=== PATIENT | male | born 1970 | race Caucasian/White ===

== ENCOUNTER 2017-04-14 05:47 | Emergency (ER) | payer OTHER ==
[~2017-04-14] VITALS: Ht 170.2 cm; Wt 76.7 kg
[2017-04-14 05:51] VITALS: TEMP 36.6; Ht 170.2 cm; Wt 76.7 kg
[2017-04-14 06:21] LABS: BASO % 0.2 %; BASO ABS # 0.02 K/uL (0-0.2); COMPLETE YES; EOS % 1.4 %; HEMATOCRIT 42.8 % (42-52); IG% 0.2 %; LYMPH % 19.4 %; LYMPH ABS # 1.85 K/uL (1.2-3.4); MEAN CELL VOLUME 81.5 fL (80-100); MEAN CORPUSCULAR HEMOGLOBIN 28.2 pg (25-34); MEAN CORPUSCULAR HGB CONC 34.6 g/dl (32-36); MEAN PLATELET VOLUME 9.3 fL (7.4-10.4); MONO % 4.9 %; NEUT % 73.9 %; PLATELET COUNT 203 K/uL (130-400); RED BLOOD COUNT 5.25 M/uL (4.7-6.1); WHITE BLOOD COUNT 9.53 K/uL (4.8-10.8)
[2017-04-14] MEDS ORDERED: OXYC1TAB3 PO (06:30)
[2017-04-14] MEDS ORDERED: ONDANSETRON HOME PACK 4MG OD TAB PO ONE (06:30)
[2017-04-14] MEDS ORDERED: OXYCODONE IR HOME PACK PO ONE (06:30)
[2017-04-14 06:31] LABS: URINE APPEARANCE CLEAR (CLEAR); URINE BILIRUBIN NEG (NEG); URINE COLOR YELLOW; URINE EPITHELIAL CELL AUTO 0-5 /lpf (0-5); URINE NITRITE NEG (NEG); URINE SPECIFIC GRAVITY 1.014 (1.000-1.030); UROBILINOGEN NEG (NEG); ZZUR CULT IF INDIC CLEAN CATCH NO
[2017-04-14 06:38] LABS: MANUAL MICROSCOPIC REQUIRED? NO; REVIEW REQ? NO
[2017-04-14 06:39] LABS: BUN/CREATININE RATIO 20.3 (10-20); CALCIUM 8.5 mg/dl (8.5-10.1); CREATININE 0.91 mg/dl (0.60-1.40); POTASSIUM 3.9 mmol/L (3.5-5.1)
--- NOTE | 2017-04-14 06:44 | EMERGENCY ROOM VISIT NOTE ---
History First contact with patient: 05:55 Chief Complaint: FLANK PAIN Stated Complaint: SIDDEN PAIN IN THE RIGHT SIDE,COLD SWEATS History of Present Illness The patient is a 46 year old male who presents to the Emergency Room with complaints of sudden severe onset of right flank pain that radiates to his groin for the past few hours. Patient took a pain pill and the pain is better. Currently 4-10. Nothing makes it better or worse. Patient was of urinary frequency without dysuria. Patient denies chest pain, dyspnea, fever, chills, vomiting, diarrhea, testicular pain, penile pain. No history kidney stones. Prior CT imaging showed a 5 mm kidney stone in the kidney. Patient is [place]- speaking and is requesting his son to translate. Review of Systems See HPI for pertinent positives & negatives. A total of 10 systems reviewed and were otherwise negative. Past Medical/Surgical History Medical Problems: (1) LUMBAGO (2) SCIATICA Family History Patient reports no known family medical history. Social History Smoking Status: Current Every Day Smoker Alcohol Use: none Drug Use: none Marital Status: Housing Status: lives with family Occupation Status: employed Current/Historical Medications Scheduled PRN Oxycodone Immediate Rel Tab (Roxicodone Ir), 1-2 TAB PO Q4H PRN for Severe Pain Allergies Coded Allergies: No Known Allergies (Unverified , 06/03/16) Physical Exam Vital Signs Date Time Temp Pulse Resp B/P Pulse Ox O2 Delivery O2 Flow Rate FiO2 04/14/17 05:51 36.6 70 18 114/78 97 Room Air Physical Exam VITALS: Vitals are noted on the nurse's note and reviewed by myself. Vital signs stable. GENERAL: Pleasant male, in no acute distress, nondiaphoretic, well-developed well-nourished. SKIN: The skin was without rashes, erythema, edema, or bruising. There is no tenting of the skin. Capillary reflex less than 2 seconds. HEAD: Normocephalic atraumatic. EARS: External auditory canals clear, tympanic membranes pearly juarez without erythema or effusion bilaterally. EYES: Pupils equal round and reactive to light and accommodation. Conjunctivae without injection, sclerae without icterus. Extraocular movements intact. NOSE: Patent, turbinates without inflammation or discharge. MOUTH: Mucous membranes moist. Pharynx without erythema or exudate. Uvula midline. Airway patent. Tongue does not deviate. NECK: Supple without nuchal rigidity. No lymphadenopathy. No thyromegaly. Cervical spine is nontender. No JVD. HEART: Regular rate and rhythm without murmurs gallops or rubs. LUNGS: Clear to auscultation bilaterally without wheezes, rales or rhonchi. No dullness to percussion. No retractions or accessory muscle use. ABDOMEN: Positive bowel sounds x 4. Normal tympanic percussion. Soft, nontender, without masses or organomegaly. Rodriguez sign negative. No guarding or rebound tenderness. No CVA tenderness MUSCULOSKELETAL: No muscle atrophy, erythema, or edema noted. NEURO: Patient was alert and oriented to person place and time. Normal sensation to light and sharp touch. No focal neurological deficits. Medical Decision & Procedures Laboratory Results 04/14/17 06:00 Red Blood Count 5.25, Mean Corpuscular Volume 81.5, Mean Corpuscular Hemoglobin 28.2, Mean Corpuscular Hemoglobin Concent 34.6, Mean Platelet Volume 9.3, Neutrophils (%) (Auto) 73.9, Lymphocytes (%) (Auto) 19.4, Monocytes (%) (Auto) 4.9, Eosinophils (%) (Auto) 1.4, Basophils (%) (Auto) 0.2, Neutrophils # (Auto) 7.04, Lymphocytes # (Auto) 1.85, Monocytes # (Auto) 0.47, Eosinophils # (Auto) 0.13, Basophils # (Auto) 0.02 04/14/17 06:00 Test 04/14/17 06:00 04/14/17 06:05 White Blood Count 9.53 K/uL (4.8-10.8) Red Blood Count 5.25 M/uL (4.7-6.1) Hemoglobin 14.8 g/dL (14.0-18.0) Hematocrit 42.8 % (42-52) Mean Corpuscular Volume 81.5 fL (80-100) Mean Corpuscular Hemoglobin 28.2 pg (25-34) Mean Corpuscular Hemoglobin Concent 34.6 g/dl (32-36) Platelet Count 203 K/uL (130-400) Mean Platelet Volume 9.3 fL (7.4-10.4) Neutrophils (%) (Auto) 73.9 % Lymphocytes (%) (Auto) 19.4 % Monocytes (%) (Auto) 4.9 % Eosinophils (%) (Auto) 1.4 % Basophils (%) (Auto) 0.2 % Neutrophils # (Auto) 7.04 K/uL (1.4-6.5) Lymphocytes # (Auto) 1.85 K/uL (1.2-3.4) Monocytes # (Auto) 0.47 K/uL (0.11-0.59) Eosinophils # (Auto) 0.13 K/uL (0-0.5) Basophils # (Auto) 0.02 K/uL (0-0.2) RDW Standard Deviation 41.2 fL (36.4-46.3) RDW Coefficient of Variation 13.7 % (11.5-14.5) Immature Granulocyte % (Auto) 0.2 % Immature Granulocyte # (Auto) 0.02 K/uL (0.00-0.02) Anion Gap 8.0 mmol/L (3-11) Est Creatinine Clear Calc Drug Dose 96.9 ml/min Estimated GFR () 118.4 Estimated GFR (Non- 102.1 BUN/Creatinine Ratio 20.3 (10-20) Calcium Level 8.5 mg/dl (8.5-10.1) Urine Color YELLOW Urine Appearance CLEAR (CLEAR) Urine pH 5.0 (4.5-7.5) Urine Specific [place] 1.014 (1.000-1.030) Urine Protein NEG (NEG) Urine Glucose (UA) NEG (NEG) Urine Ketones NEG (NEG) Urine Occult Blood 3+ (NEG) Urine Nitrite NEG (NEG) Urine Bilirubin NEG (NEG) Urine Urobilinogen NEG (NEG) Urine Leukocyte Esterase NEG (NEG) Urine WBC (Auto) 1-5 /hpf (0-5) Urine RBC (Auto) 10-30 /hpf (0-4) Urine Hyaline Casts (Auto) 0 /lpf (0-5) Urine Epithelial Cells (Auto) 0-5 /lpf (0-5) Urine Bacteria (Auto) NEG (NEG) ED Course Prior records/ancillary studies reviewed. Triage Nursing notes reviewed. Additional history obtained from the family. The patient's history was concerning for right flank pain. Differential diagnosis: Etiologies such as renal colic, appendicitis, diverticulitis, mesenteric ischemia, aortic pathology, infections, inflammatory bowel disease, PUD, biliary pathology, UTI, as well as others were entertained. Physical examination findings: As above. ER treatment provided: Patient was observed. He denied current pain meds On reassessment the patient felt better. Diagnostic interpretation by me: The labs revealed stable H&H no leukocytosis. Urinalysis revealed hematuria. There was no sign of UTI. Imaging studies: CT of the abdomen and pelvis was reviewed and read by radiology. CT ABDOMEN & PELVIS: 5 mm stone right proximal ureter. Mild right hydronephrosis. Appendix is without evidence of appendicitis. Spleen is mildly enlarged. No free air or free fluid. No evidence of bowel obstruction. Mild degenerative changes of spine. Radiologist: Raffy Bar MD It appears that the patient has isolated renal colic from a right sided stone. Patient felt much better. He was advised to strain his urine and to follow-up with urology in a few days or here in the ER sooner for severe pain, fevers, vomiting, worsening signs or symptoms or as needed. Patient did not have acute abdomen on exam. He is well-appearing. He felt comfortable going home. By the evaluation outlined above emergent etiologies such as appendicitis, diverticulitis, mesenteric ischemia, aortic pathology, infections, inflammatory bowel disease, PUD, biliary pathology, UTI, as well as others were deemed relatively unlikely. The pt informed about the findings as listed above. All questions were answered and pleased with the treatment. Return instructions were outlined and the patient was discharged in stable condition. Outpatient prescription management: Oxy IR 5mg 1-2 po Q4 hrs prn zofran Referral: The pt was referred to [facility] for follow up care regarding their stone. or The patient was referred back to their primary care physician for follow-up in 2 to 3 days for a recheck of the current condition. case reviewed with my Attending Medical Decision as above Impression Primary Impression: Renal colic on right side Departure Information Dispostion Home / Self-Care Condition GOOD Prescriptions Oxycodone Immediate Rel Tab (ROXICODONE IR) 5 Mg Tab 1-2 TAB PO Q4H Y for Severe Pain, #15 TAB initial course Prov: Millicent Worthington ., STEVEN 04/14/17 Referrals No Doctor, Assigned (PCP) Patient Instructions My [facility] Additional Instructions DO NOT drive, drink alcohol, operate machinery, or perform dangerous activities today. You were given medications in the ER that can affect your ability to safely function or operate a vehicle. Oxycodone Immediate Release (OxyIR) 5mg: Take 1-2 pills every four hours for pain. Avoid alcohol, operating machinery or dangerous equipment, working on ladders or roofs, DRIVING, or situations where being under the influence may be dangerous. It is recommended to use an [id number] stool softener such as Colace, 100mg twice daily while taking this medication to avoid constipation. Zofran 4 mg: Take one every six hours as needed for nausea. Avoid alcohol, operating machinery or dangerous equipment, working on ladders or roofs, DRIVING , or situations where being under the influence may be dangerous. Ibuprofen(Motrin, Advil) may be used for fever or pain. Use 600mg every six hours as needed. Take with food. Avoid using more than 2400mg in a 24 hour period. Do not use 2400mg per day for more than three consecutive days without physician direction. Prolonged inappropriate use can lead to stomach upset or ulcers. This medication can be taken if you need to drive, work, or perform activities which may be dangerous when taking narcotic pain medication. (AND/OR) Acetaminophen(Tylenol) may be used for fever or pain. Use 1000mg every six hours as needed. Avoid using more than 3000mg in a 24 hour period. This medication can be taken if you need to drive, work, or perform activities which may be dangerous when taking narcotic pain medication. Strain your urine and collect all the stones or debris for the urologists. Rest and avoid strenuous activity until your stone passes and symptoms resolve. Drink plenty of fluids. Continue current medications. Return to the ER for worsening abdominal or back pain, vomiting, fevers, passing out, or as needed. Follow up with [facility] tomorrow, [phone], to arrange a visit.
[2017-04-14 07:04] VITALS: BP 115/73; PULSE 63; O2SAT 98
--- NOTE | 2017-04-14 11:05 | DIAGNOSTIC IMAGING REPORT ---
CT OF THE ABDOMEN AND PELVIS WITHOUT CONTRAST, STONE PROTOCOL CLINICAL HISTORY: Right flank pain. COMPARISON STUDY: CT of the abdomen and pelvis June 03, 2016. TECHNIQUE: Helical axial images of the abdomen and pelvis were obtained without IV or oral contrast according to renal stone protocol. FINDINGS: A 5 mm proximal right ureteral calculus results in mild right hydronephrosis. Evaluation of the remainder of the abdomen and pelvis is suboptimal on this unenhanced exam. Unenhanced images of the liver, spleen, adrenal glands and pancreas are normal. There is no evidence for a bowel obstruction. There is no lymphadenopathy. Skeletal structures are unremarkable. There is a moderate amount of stool within the colon and rectum. IMPRESSION: 5 mm proximal right ureteral calculus which results in mild right hydronephrosis. Electronically signed by: Faisal Byrd M.D. 04/14/2017 11:04 AM Dictated Date/Time: 04/14/2017 11:02 AM
== END 2017-04-14 07:08 | disposition home or self-care (01) ==
LOC: C.EDB 05:48
DX: N23 Unspecified renal colic (principal); N20.0 Calculus of kidney; F17.210 Nicotine dependence, cigarettes, uncomplicated

== ENCOUNTER 2017-04-20 04:47 | Emergency (ER) | payer OTHER ==
[~2017-04-20] VITALS: Ht 172.7 cm; Wt 75.9 kg
[~2017-04-20 04:47] MED LIST: OXYC1TAB3 PO
[2017-04-20 04:52] VITALS: TEMP 36.6; Ht 172.7 cm; Wt 75.9 kg
[2017-04-20] MEDS ORDERED: KETOROLAC TROMETHAMINE 30 MG/ML VIAL IV STA (05:00)
[2017-04-20] MEDS ORDERED: SODIUM CHLORIDE 0.9% 1000ML 1,000 ML IV ONE (05:00)
[2017-04-20] MEDS ORDERED: MoRPHine SULFATE 10 MG/ML CARP/VIAL IV STA ×2 (05:00→06:28)
[2017-04-20 05:16] LABS: BASO % 0.2 %; BASO ABS # 0.02 K/uL (0-0.2); COMPLETE YES; EOS % 0.3 %; HEMATOCRIT 43.2 % (42-52); IG% 0.2 %; LYMPH % 14.5 %; LYMPH ABS # 1.53 K/uL (1.2-3.4); MEAN CELL VOLUME 81.1 fL (80-100); MEAN CORPUSCULAR HEMOGLOBIN 29.3 pg (25-34); MEAN CORPUSCULAR HGB CONC 36.1 g/dl (32-36); MEAN PLATELET VOLUME 9.6 fL (7.4-10.4); MONO % 3.7 %; NEUT % 81.1 %; PLATELET COUNT 237 K/uL (130-400); RED BLOOD COUNT 5.33 M/uL (4.7-6.1); WHITE BLOOD COUNT 10.54 K/uL (4.8-10.8)
[2017-04-20 05:35] LABS: MANUAL MICROSCOPIC REQUIRED? NO; REVIEW REQ? NO; URINE APPEARANCE CLEAR (CLEAR); URINE BILIRUBIN NEG (NEG); URINE COLOR YELLOW; URINE NITRITE NEG (NEG); URINE SPECIFIC GRAVITY 1.018 (1.000-1.030); UROBILINOGEN NEG (NEG); ZZUR CULT IF INDIC CLEAN CATCH NO
[2017-04-20 05:39] LABS: BUN/CREATININE RATIO 19.5 (10-20); CALCIUM 8.7 mg/dl (8.5-10.1); POTASSIUM 3.7 mmol/L (3.5-5.1)
[2017-04-20 05:42] LABS: ALB/GLOB RATIO 1.2 (0.9-2)
[2017-04-20] MEDS ORDERED: MAGNESIUM CITRATE 296 ML/BTL PO ONE (06:30)
[2017-04-20 06:43] VITALS: BP 103/60; PULSE 77; O2SAT 96
--- NOTE | 2017-04-20 06:57 | EMERGENCY ROOM VISIT NOTE ---
History First contact with patient: 04:54 Chief Complaint: KIDNEY STONE Stated Complaint: ABD PAIN History of Present Illness The patient is a 46 year old male who presents to the Emergency Room with complaints of right-sided abdominal pain that is worsening over the past few hours. The patient is coming to by his family who assists in the history and help translate as the patient primarily speaks [place]. The patient has a recent history of ureteral calculi, and has been taking a prescription of oxycodone with relief of his pain. He has been doing well the past several days , but his symptoms worsened today. He has not had nausea or vomiting. No fever or chills. He rates his current discomfort a 7/10. Review of Systems More than 10 systems were reviewed and otherwise negative with the exception of history of present illness. Past Medical/Surgical History Medical Problems: (1) LUMBAGO (2) SCIATICA Family History Patient reports no known family medical history. Social History Smoking Status: Former Smoker Alcohol Use: none Drug Use: none Marital Status: Housing Status: lives with family Occupation Status: employed Allergies Coded Allergies: No Known Allergies (Unverified , 04/20/17) Physical Exam Vital Signs Date Time Temp Pulse Resp B/P (MAP) Pulse Ox O2 Delivery O2 Flow Rate FiO2 04/20/17 05:50 75 18 112/56 93 Room Air 04/20/17 04:52 36.6 69 20 134/89 97 Room Air Physical Exam VITALS: Vitals are noted on the nurse's note and reviewed by myself. Vital signs stable. GENERAL: Well-developed, well-nourished, white male who is in mild discomfort secondary to his stated complaint. HEAD: Normocephalic atraumatic. HEART: Regular rate and rhythm without murmurs gallops or rubs. LUNGS: Clear to auscultation bilaterally without wheezes, rales or rhonchi. No retractions or accessory muscle use. ABDOMEN: Positive normal bowel sounds x 4. Soft, nontender, without masses or organomegaly. No guarding or rebound tenderness. No CVA tenderness. MUSCULOSKELETAL: No muscle atrophy, erythema, or edema noted. Full range of motion without joint tenderness in all extremities. Medical Decision & Procedures ER Provider Diagnostic Interpretation: Preliminary Findings Only See Final Report For Complete Findings US RENAL: Prior CT 04/14 17 Right kidney mild right hydronephrosis which may be similar or mildly decreased compared to the prior CT No left hydronephrosis. Bladder not fully distended. Right ureteral jet visualized in the bladder. Laboratory Results 04/20/17 05:00 Red Blood Count 5.33, Mean Corpuscular Volume 81.1, Mean Corpuscular Hemoglobin 29.3, Mean Corpuscular Hemoglobin Concent 36.1, Mean Platelet Volume 9.6, Neutrophils (%) (Auto) 81.1, Lymphocytes (%) (Auto) 14.5, Monocytes (%) (Auto) 3.7, Eosinophils (%) (Auto) 0.3, Basophils (%) (Auto) 0.2, Neutrophils # (Auto) 8.55, Lymphocytes # (Auto) 1.53, Monocytes # (Auto) 0.39, Eosinophils # (Auto) 0.03, Basophils # (Auto) 0.02 04/20/17 05:00 Test 04/20/17 04:55 04/20/17 05:00 Urine Color YELLOW Urine Appearance CLEAR (CLEAR) Urine pH 8.0 (4.5-7.5) Urine Specific [place] 1.018 (1.000-1.030) Urine Protein NEG (NEG) Urine Glucose (UA) NEG (NEG) Urine Ketones 1+ (NEG) Urine Occult Blood 3+ (NEG) Urine Nitrite NEG (NEG) Urine Bilirubin NEG (NEG) Urine Urobilinogen NEG (NEG) Urine Leukocyte Esterase NEG (NEG) Urine WBC (Auto) 1-5 /hpf (0-5) Urine RBC (Auto) >30 /hpf (0-4) Urine Hyaline Casts (Auto) 0 /lpf (0-5) Urine Epithelial Cells (Auto) 10-20 /lpf (0-5) Urine Bacteria (Auto) NEG (NEG) White Blood Count 10.54 K/uL (4.8-10.8) Red Blood Count 5.33 M/uL (4.7-6.1) Hemoglobin 15.6 g/dL (14.0-18.0) Hematocrit 43.2 % (42-52) Mean Corpuscular Volume 81.1 fL (80-100) Mean Corpuscular Hemoglobin 29.3 pg (25-34) Mean Corpuscular Hemoglobin Concent 36.1 g/dl (32-36) Platelet Count 237 K/uL (130-400) Mean Platelet Volume 9.6 fL (7.4-10.4) Neutrophils (%) (Auto) 81.1 % Lymphocytes (%) (Auto) 14.5 % Monocytes (%) (Auto) 3.7 % Eosinophils (%) (Auto) 0.3 % Basophils (%) (Auto) 0.2 % Neutrophils # (Auto) 8.55 K/uL (1.4-6.5) Lymphocytes # (Auto) 1.53 K/uL (1.2-3.4) Monocytes # (Auto) 0.39 K/uL (0.11-0.59) Eosinophils # (Auto) 0.03 K/uL (0-0.5) Basophils # (Auto) 0.02 K/uL (0-0.2) RDW Standard Deviation 40.5 fL (36.4-46.3) RDW Coefficient of Variation 13.6 % (11.5-14.5) Immature Granulocyte % (Auto) 0.2 % Immature Granulocyte # (Auto) 0.02 K/uL (0.00-0.02) Anion Gap 9.0 mmol/L (3-11) Est Creatinine Clear Calc Drug Dose 91.2 ml/min Estimated GFR () 105.6 Estimated GFR (Non- 91.1 BUN/Creatinine Ratio 19.5 (10-20) Calcium Level 8.7 mg/dl (8.5-10.1) Total Bilirubin 0.7 mg/dl (0.2-1) Aspartate Amino Transf (AST/SGOT) 24 U/L (15-37) Alanine Aminotransferase (ALT/SGPT) 26 U/L (12-78) Alkaline Phosphatase 51 U/L (45-117) Total Protein 7.6 gm/dl (6.4-8.2) Albumin 4.2 gm/dl (3.4-5.0) Globulin 3.4 gm/dl (2.5-4.0) Albumin/Globulin Ratio 1.2 (0.9-2) Lipase 156 U/L (73-393) Medications Administered Medications (Trade) Dose Ordered Sig/Arvind Route Start Time Stop Time Status Last Admin Dose Admin Sodium Chloride 1,000 ml @ 999 mls/hr Q1H1M ONCE IV 04/20/17 05:00 04/20/17 06:00 DC 04/20/17 05:11 999 MLS/HR Ketorolac Tromethamine (Toradol Inj) 30 mg NOW STAT IV 04/20/17 05:00 04/20/17 05:03 DC 04/20/17 05:11 30 MG Morphine Sulfate (MoRPHine SULFATE INJ) 8 mg NOW STAT IV 04/20/17 05:00 04/20/17 05:03 DC 04/20/17 05:10 8 MG ED Course Physical exam and history were performed. Nursing notes and EMR were reviewed. Patient appears to have right-sided abdominal pain that returned about one hour ago. The patient has a recent history of ureteral calculi. He has been taking oxycodone at home for pain, and this appears to have been working well until this evening. The patient does not appear toxic on examination. IV access was established and labs were obtained. The patient was hydrated and medicated as above. He does have a recent CT scan, and because of this I elected to perform a KUB and ultrasound. Urine was collected and did show some blood. The patient's blood work is as above and was reviewed. He does not have a significant elevated white blood cell count, gross anemia, bandemia, or significant electrolyte imbalance. Lipase and transaminases are nondiagnostic. KUB was reviewed by myself and my attending, and appears to show increased stool in the colon. Ultrasound shows a very mild right hydronephrosis which may be mildly decreased. Ultrasound did not show distinct stone. Overall the patient had improvement of his symptoms after hydration and medication. I discussed options of care with the family, and the patient voiced a desire to go home. This appears reasonable as he had been doing well up to this point with oxycodone at home. I suspect that the opioids are causing him constipation. Because of this I will give him a bottle of magnesium citrate to use at home. The patient was thoroughly invited back to the emergency department with any new, worsening, or concerning symptoms. He voiced understanding and his discomfort was rated a 4/10 at the time of departure. He was discharged home under the care of his family who are acting as the limb driver today. The chart was completed utilizing [employer] Speech Voice Recognition Software. Grammatical errors, random word insertions, pronoun errors, and incomplete sentences are an occasional consequence of this system due to software limitations, ambient noise, and hardware issues. Any formal questions or concerns about the content, text, or information contained within the body of this dictation should be directly addressed to the provider for clarification. Medical Decision Differential diagnosis: Etiologies such as renal colic, appendicitis, diverticulitis, mesenteric ischemia, aortic pathology, infections, inflammatory bowel disease, PUD, biliary pathology, UTI, as well as others were entertained. Impression Primary Impression: Abdominal pain Additional Impression: Constipation Departure Information Dispostion Home / Self-Care Condition GOOD Forms HOME CARE DOCUMENTATION FORM, IMPORTANT VISIT INFORMATION Patient Instructions My [facility] Additional Instructions You were seen and evaluated today on an emergency basis only. This is not a substitute for, or an effort to provide, complete comprehensive medical care. It is not possible to recognize and treat all injuries or illnesses in a single emergency department visit. For this reason it is recommended that you followup with Urology as previously instructed regarding your kidney stone. Take magnesium citrate at home. Drink one half the bottle, wait one hour, then drink the other half. This will cause a bowel movement. Drink plenty of water well taking this medication. Continue your medications at home as prescribed. You are welcome to return to the emergency department anytime with new, worsening, or concerning symptoms. Problem Qualifiers
--- NOTE | 2017-04-20 07:17 | DIAGNOSTIC IMAGING REPORT ---
RENAL ULTRASOUND HISTORY: right flank pain. stone on CT a few days ago COMPARISON: Abdomen and pelvis CT 04/06/2017. FINDINGS: Right kidney: 11.0 cm. Mild fullness within the right renal collecting system without tala hydronephrosis. This is stable slightly improved. Normal corticomedullary differentiation and cortical thickness. Left kidney: 10.6 cm. No hydronephrosis. Normal corticomedullary differentiation and cortical thickness. Bladder: No bladder wall thickening. The right ureteral jet was identified. IMPRESSION: Mild fullness within the right renal collecting system without tala hydronephrosis. This is stable slightly improved. Normal left kidney. Electronically signed by: Melo Elkins M.D. 04/20/2017 7:15 AM Dictated Date/Time: 04/20/2017 7:13 AM
--- NOTE | 2017-04-20 07:21 | DIAGNOSTIC IMAGING REPORT ---
KUB HISTORY: Right flank pain. Stone on ct a few days ago COMPARISON: Abdomen and pelvis CT 04/06/2017. FINDINGS: The bowel gas pattern is unremarkable. There are no dilated loops of small bowel to suggest an obstruction. Possible 4 mm round calcification overlying the right side of the sacrum. No renal calculi identified. No bladder calculi. No pneumoperitoneum or pneumatosis. IMPRESSION: Possible 4 mm round calcification overlying the right side the sacrum. This could represent the mid to distal right ureteral stone. Electronically signed by: Melo Elkins M.D. 04/20/2017 7:20 AM Dictated Date/Time: 04/20/2017 7:17 AM
== END 2017-04-20 06:43 | disposition home or self-care (01) ==
LOC: C.EDB 04:48 → C.EDA 06:43
DX: R10.9 Unspecified abdominal pain (principal); K59.00 Constipation, unspecified; N13.30 Unspecified hydronephrosis; Z87.442 Personal history of urinary calculi; Z87.891 Personal history of nicotine dependence

== ENCOUNTER → 2018-01-27 | Outpatient (CLI) | payer OTHER ==
[~2018-01-27] MED LIST changes: +OPTIRAY 320 IV PRN; -OXYC1TAB3 PO
--- NOTE | 2018-01-27 12:11 | DIAGNOSTIC IMAGING REPORT ---
CT UROGRAM CLINICAL HISTORY: Microscopic hematuria. COMPARISON STUDY: Abdominal CT dated 04/14/2017. TECHNIQUE: Before and following the IV administration of 120 cc of Optiray 320, CT urogram of the abdomen and pelvis is performed from the lung bases to the proximal femora. Images are reviewed in the axial, sagittal, and coronal planes. IV contrast was administered without complication. A dose lowering technique was utilized adhering to the principles of ALARA. CT DOSE: 1266.58 mGycm FINDINGS: Lung bases: The heart is normal in size and without pericardial effusion. The lung bases are clear noting dependent atelectasis. Liver: The contrast-enhanced liver is normal in size, contour, and attenuation. There is no intrahepatic biliary ductal dilatation. The hepatic veins and portal veins are patent. Gallbladder: Unremarkable. Spleen: Normal in size and attenuation. Pancreas: Unremarkable. Adrenal glands: Unremarkable. Kidneys and ureters: The contrast enhanced kidneys are normal in size and without hydronephrosis. There are no renal calculi identified on the unenhanced images. The kidneys enhance and excrete symmetrically. There is no enhancing renal cortical mass lesion identified. There is no evidence of urothelial lesion within the renal pelvis bilaterally or along the course of either ureter. The distal ureters are not well opacified by excreted contrast. A retroaortic left renal vein is incidentally noted. Abdominal vasculature: The abdominal aorta is normal in course and caliber. Bowel: The small bowel and colon are normal in course and caliber. The appendix is well-visualized and normal. Peritoneum: There is no intraperitoneal free air or abdominal ascites. There is a small fat-containing umbilical hernia. Lymphadenopathy: None. Pelvic viscera: The bladder, prostate, and seminal vesicles are normal as visualized. Skeletal structures: No lytic or blastic lesions are seen. A bone island is incidentally noted in the body of L1. IMPRESSION: Normal CT urogram. Electronically signed by: Дмитрий Austin M.D. 01/27/2018 12:10 PM Dictated Date/Time: 01/27/2018 12:04 PM
== END | disposition home or self-care (01) ==
LOC: C.CTS 10:45
PROVIDERS: ATTEND Urology
DX: N20.0 Calculus of kidney (principal); R31.29 Other microscopic hematuria

== ENCOUNTER 2018-07-07 22:12 | Emergency (ER) | payer OTHER ==
[~2018-07-07] VITALS: Ht 175.3 cm; Wt 78.9 kg
[2018-07-07 22:15] VITALS: TEMP 36.9; Ht 175.3 cm; Wt 78.9 kg
[2018-07-07] MEDS ORDERED: METH4PAK PO (22:48)
--- NOTE | 2018-07-07 22:51 | EMERGENCY ROOM VISIT NOTE ---
ED Visit Note First contact with patient: 22:19 CHIEF COMPLAINT: Rash HISTORY OF PRESENT ILLNESS: This 47-year-old male patient presents to the emergency department, ambulatory, complaining of a rash diffusely which started Saturday. 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 Later in the day, he noticed that he had a rash on his bilateral arms. The patient states he was working in a house with a dog, but is uncertain if that could have caused the rash. The patient states the rash spread up his arms, onto his torso and neck, followed by his legs. The rash does not seem to be on his hands, feet, or face. The patient denies any other associated symptoms. The patient denies fever, chills, nausea, or loss of appetite. They deny any URI symptoms. The patient has tried Benadryl without relief. The patient states the rash is not irritating or uncomfortable and rates the discomfort as 0 /10. No change in food, soap, detergents, or other environmental factors. No new medications. No weakness or numbness. Patient denies any recent travel. He is from [facility] and states he was vaccinated as a child. REVIEW OF SYSTEMS: A 6 system review of systems was completed with positives and pertinent negatives listed in the HPI. ALLERGIES: None MEDICATIONS: None PMH: None SOCIAL HISTORY: The patient lives locally with family. He denies drug, alcohol , tobacco use. PHYSICAL EXAM: Vital Signs: Reviewed Nurse's notes, vital signs stable. GENERAL: This is a 47-year-old male, in no acute distress, well-developed, well- nourished. SKIN: Maculopapular rash noted diffusely on the arms, torso, and bilateral legs. No excoriations noted. No edema or erythema. The rash is blanchable with pressure. No drainage. Capillary refill less than 2 seconds. HEAD: Normocephalic atraumatic. EARS: External auditory canals clear, tympanic membranes pearly juarez without erythema or effusion bilaterally. EYES: Pupils equal round and reactive to light and accommodation. Conjunctivae without injection, sclerae without icterus. Extraocular movements intact. NOSE: Patent, turbinates without inflammation or discharge. No sinus tenderness. MOUTH: Mucous membranes moist. Tonsils are not enlarged. Pharynx without erythema or exudate. Uvula midline. Airway patent. Tongue does not deviate. NECK: Supple without nuchal rigidity. No lymphadenopathy. No thyromegaly. Cervical spine is nontender. No JVD. HEART: Regular rate and rhythm without murmurs gallops or rubs. LUNGS: Clear to auscultation bilaterally without wheezes, rales or rhonchi. No dullness to percussion. No retractions or accessory muscle use. ABDOMEN: Positive bowel sounds x 4. Normal tympanic percussion. Soft, nontender, without masses or organomegaly. Rodriguez sign negative. No guarding or rebound tenderness. MUSCULOSKELETAL: No muscle atrophy, erythema, or edema noted. Full range of motion without joint tenderness in all extremities. No tenderness to palpation. Normal gait. Strength 5/5 throughout. NEURO: Patient was alert and oriented to person place and time. Normal sensation to light and sharp touch. Deep tendon reflexes 2+ throughout. No focal neurological deficits. EMERGENCY DEPARTMENT COURSE: The patient was seen and evaluated as above. The patient presents with a diffuse maculopapular rash and no other symptoms within the past month. He has not been exposed and he knew external factors or medications. He has not recently traveled. Patient states he is vaccinated. The patient has not experienced any fever. I suspect a viral versus allergic cause of the patient's symptoms. I recommended he monitor the symptoms overnight and start the steroid pack tomorrow if no improvement. The patient verbalized agreement and understanding. He was encouraged to follow-up with the primary care provider in 2-3 days for reevaluation. Discharge instructions reviewed, patient was discharged home in good condition. I attest that I have personally reviewed the patient's current medication list. Patient was found to have normal blood pressure on screening and does not require follow-up. Differential diagnosis includes measles, Lyme disease, [place] spotted fever, allergic, fungal, scabies, herpes, dermatitis, eczema, cellulitis, abscess, viral, musculoskeletal etiology, hepatic abnormality, malignancy, and others DIAGNOSIS: Rash, nonspecific skin eruption The chart was completed utilizing [employer] voice recognition software. Grammatical errors, random word insertions, pronoun errors, and incomplete sentences are an occasional consequence of this system due to software limitations, ambient noise, and hardware issues. Any formal questions or concerns about the content, text, or information contained within the body of this dictation should be directly addressed to the provider for clarification. (Desirae Taylor PA-C) First contact with patient: 22:19 (Wali Kasper M.D.) Problem List Medical Problems: (1) LUMBAGO Status: Chronic (2) SCIATICA Status: Chronic (Wali Kasper M.D.) Current/Historical Medications Scheduled Methylprednisolone (Medrol Dosepak), 0 PO DAILY Allergies Coded Allergies: No Known Allergies (Unverified , 04/20/17) Vital Signs Date Time Temp Pulse Resp B/P (MAP) Pulse Ox O2 Delivery O2 Flow Rate FiO2 07/07/18 23:02 64 18 116/72 96 07/07/18 22:15 36.9 61 18 114/69 96 Room Air (Wali Kasper M.D.) Departure Information Impression Primary Impression: Rash and nonspecific skin eruption Dispostion Home / Self-Care Condition GOOD Prescriptions Methylprednisolone (MEDROL DOSEPAK) 4 Mg Jose 0 PO DAILY, #1 PKT Prov: Desirae Taylor PA-C 07/07/18 Referrals Vinny Rose M.D. (PCP) Patient Instructions ED Dermatitis Non Specific Rash, My [facility] Additional Instructions You were seen in the ED today for a rash. As discussed, rash is nonspecific in nature, with no other symptoms. I suspect a possible allergic dermatitis, however this could be viral in nature. You have been prescribed a Medrol Dosepak. This is a steroid which will help decrease your inflammation, redness, and itch. Take the medicine as prescribed. Take the ENTIRE 6 day course of the steroids. Start this medication ONLY IF the rash is worsening tomorrow. Otherwise, I recommend letting the rash run its course. Ibuprofen(Motrin, Advil) may be used for fever or pain. Use 600mg every six hours as needed. Take with food. Avoid using more than 2400mg in a 24 hour period. Do not use 2400mg per day for more than three consecutive days without physician direction. Prolonged inappropriate use can lead to stomach upset or ulcers. (AND/OR) Acetaminophen(Tylenol) may be used for fever or pain. Use 1000mg every six hours as needed. Avoid using more than 3000mg in a 24 hour period. Follow-up with your PCP regarding ongoing management and care of the rash. I recommend follow-up in 2-3 days for re-evaluation. Return to the ED for worsening spreading of the rash, fever, chills, nausea/ vomiting, body aches, difficulty breathing, chest pain, headache, or other concerning symptoms.
[2018-07-07 23:02] VITALS: BP 116/72; PULSE 64; O2SAT 96
== END 2018-07-07 23:04 | disposition home or self-care (01) ==
LOC: C.EDB 22:13 → C.EDA 23:04
DX: R21 Rash and other nonspecific skin eruption (principal)